=== PATIENT | male | born 1935 | race Caucasian/White ===

== ENCOUNTER 2018-05-27 13:53 | Emergency (ER) | payer OTHER ==
[2018-05-27] MEDS ORDERED: COLCHICINE 0.6 MG CAP/TAB PO ONE (14:30)
--- NOTE | 2018-05-27 14:40 | EDPHY ---
H & P Stated Complaint: cellulitis r thumb Time Seen by Provider: 05/27/18 14:22 HPI/ROS: CHIEF COMPLAINT: Right thumb pain HISTORY OF PRESENT ILLNESS: The patient is an 82-year-old man with an LVAD who comes to the emergency department complaining of pain in the right thumb. The patient complains of pain in his PIP, the MCP and carpal/metacarpal joint. The patient thought that he might have cellulitis. He states that he had cellulitis in that area about a decade ago that was treated successfully with antibiotics. He does not remember if he had any erythema swelling at the time. He currently does not have any erythema or swelling or warmth or fever. He does notice the pain this morning when he woke up. He has been using cannabis oil and the pain has improved significantly. He denies any trauma. He does have history of gout but usually it is in his knees. He has had an LVAD for more than 10 years and is not experiencing any problems with a currently. Severity: Mild Modifying factors: Improved with cannabis while REVIEW OF SYSTEMS: Constitutional: denies: chills, fever, recent illness, recent injury EENTM: denies: blurred vision, double vision, nose congestion Respiratory: denies: cough, shortness of breath Cardiac: denies: chest pain, irregular heart rate, lightheadedness, palpitations Gastrointestinal/Abdominal: denies: abdominal pain, diarrhea, nausea, vomiting, blood streaked stools Genitourinary: denies: dysuria, frequency, hematuria, pain Musculoskeletal: See HPI Skin: denies: lesions, rash, jaundice, bruising Neurological: denies: headache, numbness, paresthesia, tingling, dizziness, weakness Hematologic/Lymphatic: denies: blood clots, easy bleeding, easy bruising Immunologic/allergic: denies: HIV/AIDS, transplant 10 systems reviewed and negative except as noted EXAM: GENERAL: Well-appearing, well-nourished and in no acute distress. HEAD: Atraumatic, normocephalic. EYES: Pupils equal round and reactive to light, extraocular movements intact, sclera anicteric, conjunctiva are normal. ENT: TMs normal, nares patent, oropharynx clear without exudates. Moist mucous membranes. NECK: Normal range of motion, supple without lymphadenopathy or JVD. LUNGS: Breath sounds clear to auscultation bilaterally and equal. No wheezes rales or rhonchi. HEART: Regular rate and rhythm without murmurs, rubs or gallops. ABDOMEN: Soft, nontender, normoactive bowel sounds. No guarding, no rebound. No masses appreciated. BACK: No CVA tenderness, no spinal tenderness, step-offs or deformities EXTREMITIES: The patient complains of pain in the joints of his right thumb. He does have normal range of motion. No visible swelling or erythema. No warmth. Normal capillary refill and sensation. Does have neuropathy a baseline NEUROLOGICAL: Cranial nerves II through XII grossly intact. Normal speech, normal gait. 5/5 strength, normal movement in all extremities, normal sensation , normal reflexes PSYCH: Normal mood, normal affect. SKIN: Warm, dry, normal turgor, no visible rashes or lesions. 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, SPINE FUS, TIFFANIE APPY, PACEMAKER AND DEFIB - Family History Significant Family History: No pertinent family hx - Social History Smoking Status: Light smoker Alcohol Use: None Constitutional: Initial Vital Signs Temperature (C) 36.5 C 05/27/18 14:04 Heart Rate 76 05/27/18 14:04 Respiratory Rate 16 05/27/18 14:04 O2 Sat (%) 96 05/27/18 14:04 O2 Delivery Mode Room Air Allergies/Adverse Reactions: codeine Allergy (Verified 05/27/18 15:00) rofecoxib [From Vioxx] Allergy (Verified 05/27/18 15:00) Home Medications: Medication Instructions Recorded COUMADIN 02/03/13 Co Q-10 02/03/13 Cymbalta 02/03/13 Flomax 0.4 MG (RX) 02/03/13 Multivitamins 02/03/13 Oxycodone HCl 02/03/13 Synthroid 100 mcg (RX) 02/03/13 TEMAZEPAM 02/03/13 Colchicine 0.6 mg PO BID #14 capsule 05/27/18 Medical Decision Making ED Course/Re-evaluation: 2:45 p.m. the patient does not have any visible signs of cellulitis or septic joint. This may represent an early gout flare. We discussed medications. He is on Coumadin and would like to avoid NSAIDs. Will start on a short dose of colchicine. Do not see any contraindications listed in our computer system. Warned him strictly to return if he develops erythema swelling fevers warmth etc. He understands and agrees with this plan. Differential Diagnosis: Partial list of the Differential diagnosis considered include but were not limited to; gout, cellulitis, neuropathy, arthritis and although unlikely based on the history and physical exam, I also considered septic joint, sepsis, embolism,. I discussed these differential diagnoses and the plan with the patient as well as the usual and expected course. The patient understands that the diagnosis is provisional and that in medicine we are not always correct and that further workup is often warranted. Usual and customary warnings were given. All of the patient's questions were answered. The patient was instructed to return to the emergency department should the symptoms at all worsen or return, otherwise to followup with the physician as we discussed. - Data Points Medications Given: Discontinued Medications Colchicine (Colchicine) 1.2 mg PO EDNOW ONE Stop: 05/27/18 14:31 Last Admin: 05/27/18 15:11 Dose: 1.2 mg Departure - Departure Disposition: Home, Routine, Self-Care Clinical Impression: Gout attack Qualifiers: Gout site: hand Gout etiology: unspecified cause Laterality: right Qualified Code(s): M10.9 - Gout, unspecified Condition: Fair Instructions: Colchicine (By mouth), Gout (ED) Referrals: Linnette Villaseñor MD [Primary Care Provider] - 1-2 days without fail Prescriptions: Colchicine 0.6 mg PO BID #14 capsule
== END 2018-05-27 14:55 | disposition home or self-care (01) ==
LOC: CED 13:53
DX: M10.9 Gout, unspecified (principal); Z79.01 Long term (current) use of anticoagulants
CPT/HCPCS: 99283-ER